=== PATIENT | female | born 1985 | race Caucasian/White ===

== ENCOUNTER 2022-11-25 14:33 | Emergency (ER) | payer BC ==
[~2022-11-25] VITALS: Ht 160 cm; Wt 86.7 kg
[2022-11-25 14:42] VITALS: BP 145/108
--- NOTE | 2022-11-25 15:20 | NUR ---
PT AMBULATED TO ROOM 7
--- NOTE | 2022-11-25 15:25 | NUR ---
37YO FEMALE PT C/O INCREASED THROBBING 10/10 GLORIA PELVIC TO LOWER BACK PAIN XTODAY. REPORTS ONGOING ONSET [id number] W/ PAIN AT MOST ON MOVMENT OR SITTING UP. STATES RECENTLY GOING TO URGENT CARE , HAD -XRAY AND MINIMAL RELIEF W/ RX GIVEN. NOTES NAUSEA AND VAGINAL BLEEDING +CLOTS XYESTERDAY. PELVIC AND BACK NON TENDER TO TOUCH. DENIES V/D, CHEST PAIN, FEVER, CHILLS OR SOB. PT AAOX4, LAYING SUPINE PER COMFORT. BED AT LOWEST POSITION, BED RAILS UPX2. HX:DENIES NKA
--- NOTE | 2022-11-25 15:29 | NUR ---
[facility] AT BEDSIDE FOR EVALUATION
--- NOTE | 2022-11-25 15:50 | NUR ---
LAB AT BEDSIDE
--- NOTE | 2022-11-25 15:54 | NUR ---
US AT BEDSIDE
[2022-11-25 15:56] LABS: APPEARANCE,URINE CLEAR (CLEAR); BILIRUBIN,URINE NEGATIVE (NEGATIVE); BLOOD, URINE 3+ (NEGATIVE); COLOR,URINE YELLOW (YELLOW); LEUKOCYTE ESTERASE ,URINE NEGATIVE (NEGATIVE); NITRITE, URINE NEGATIVE (NEGATIVE); PH,URINE 7.5 (5.0-9.0); UGLUCOSE NEGATIVE (NEGATIVE)
[2022-11-25 16:03] LABS: BASOPHILS % (AUTO) 0.6 % (0.0-2.0); EOSINOPHILS # (AUTO) 0.3 K/uL (0-0.4); EOSINOPHILS % (AUTO) 4.5 % (0.0-4.0); HEMATOCRIT 37.1 % (36-48); HEMOGLOBIN 12.7 g/dL (12.0-16.0); LYMPHOCYTES # (AUTO) 3.1 K/uL (2.5-16.5); LYMPHOCYTES % (AUTO) 43.8 % (20.5-51.1); MEAN CORPUSCULAR HEMOGLOBIN 30 pg (27-31); MEAN CORPUSCULAR HGB CONC 34 g/dL (33-37); MEAN CORPUSCULAR VOLUME 87.8 fL (80-94); MONOCYTES # (AUTO) 0.4 K/uL (0.8-1.0); MONOCYTES % (AUTO) 5.7 % (1.7-9.3); NEUTROPHILS # (AUTO) 3.2 K/uL (1.8-7.7); NEUTROPHILS % (AUTO) 45.4 % (42.2-75.2); PLATELET COUNT (AUTO) 249 K/uL (140-450); RED BLOOD CELL COUNT(AUTO) 4.22 MIL/uL (4.20-5.40)
[2022-11-25] MEDS ORDERED: KETOROLAC 30 MG/ML VIAL IM ONE (16:15)
[2022-11-25] MEDS ORDERED: HYDROcodone/APAP 5/325 MG 1 TAB TAB PO ONE (16:15)
[2022-11-25] MEDS ORDERED: ONDANSETRON 4 MG ODT PO ONE (16:15)
[2022-11-25 16:23] LABS: ALBUMIN 3.6 g/dL (3.4-5.0); ANION GAP 11.4 (8-16); CARBON DIOXIDE 29.4 mmol/L (21-32); CREATININE 0.9 mg/dL (0.6-1.3); POTASSIUM 3.8 mmol/L (3.5-5.1); TOTAL BILIRUBIN 0.2 mg/dL (0.0-1.0)
[2022-11-25 16:27] LABS: TRICHOMONAS,URINE None Seen /HPF (None Seen); WBC,URINE 0-5 /HPF (0-5); YEAST,URINE None Seen /HPF (None Seen)
[2022-11-25] MEDS ORDERED: LID5T TP (17:09)
[2022-11-25] MEDS ORDERED: CYCL-711 PO (17:09)
[2022-11-25] MEDS ORDERED: METH4TAB1 PO (17:09)
[2022-11-25] MEDS ORDERED: IBUP-2213 PO (17:09)
[2022-11-25 17:52] VITALS: BP 138/84
--- NOTE | 2022-11-25 17:52 | NUR ---
Patient discharged with v/s stable. Written and verbal after care instructions FOR LUMBAR SPRAIN , RADICULAR AND PELVIC PAIN given and explained. Patient alert, oriented and verbalized understanding of instructions. Ambulatory with steady gait. All questions addressed prior to discharge. ID band removed. Patient advised to follow up with PMD. Rx of FLEXERIL, IBUPROFEN, LIDOCAINE PATCH AND MEDROL given. Opportunity to ask questions provided and answered.
--- NOTE | 2022-11-25 18:07 | NUR ---
The patient's care was reviewed and supervised by Rosetta Tuttle RN.
== END 2022-11-25 17:52 | disposition home or self-care (01) ==
LOC: MED 14:33
DX: M54.16 Radiculopathy, lumbar region (principal); R10.2 Pelvic and perineal pain
CPT/HCPCS: 36415; 76856; 80053; 81001; 81025; 83690; 85025; 93976; 96372; 99285; J1885; Q0092; Q0162